=== PATIENT | female | born 1965 | race Hispanic/Latino ===

== ENCOUNTER 2016-07-05 14:07 | Emergency (ER) | payer SELFPAY ==
--- NOTE | 2016-07-05 14:53 | Emergency Department Report ---
Chief Complaint: Upper Respiratory Infection Stated Complaint: UPPER RESPIRATORY SINUS INFECTION Time Seen by Provider: 07/05/16 14:50 - HPI History of Present Illness: PT with URI symptoms since Mar. PT now with productive cough. hx of smoking - ROS Review of Systems: + nasal congestion + productive cough - sob - Exam Vital Signs: Vital Signs 07/05/16 14:40 Temperature 98.5 F Pulse Rate 68 Respiratory 18 Rate Blood Pressure 109/67 O2 Sat by Pulse 100 Oximetry Physical Exam: nasal congestion noted during exam no acute resp distress. lungs clear mita but diminished MSE screening note: Focused history and physical exam performed. Due to findings the following was ordered: ED Disposition for MSE Condition: Stable
--- NOTE | 2016-07-05 15:17 | XRay Report ---
CHEST 2 VIEWS INDICATION: Cough for 3 months. COMPARISON: None similar at this institution. FINDINGS: PA and lateral chest radiographs demonstrate normal cardiomediastinal silhouette. Clear, slightly hyperexpanded lungs. No pleural effusions or CHF. Intact bones. CONCLUSION: No acute chest process, as described. Thank you for the opportunity to participate in this patient's care.
--- NOTE | 2016-07-05 18:42 | Emergency Department Report ---
ED General Adult HPI - General Chief complaint: Upper Respiratory Infection Stated complaint: UPPER RESPIRATORY SINUS INFECTION Time Seen by Provider: 07/05/16 14:50 Source: patient Mode of arrival: Ambulatory Limitations: No Limitations - History of Present Illness Initial comments: PT c/o sinus pressure and drainage since Mar. PT states she was seen 06-15-16 and dx with infection but she could not tolerate the Bactrim she was placed on. PT states she has quit smoking but is concerned about her cough due to having black sputum. PT states she has had surgery on her adenoids. MD Complaint: c/c/c Onset/Timin -: Gradual, month(s) Location: head, chest Severity scale (0 -10): 10 Consistency: constant, other (worse at night) Associated Symptoms: cough, headaches, nausea/vomiting (after taking Bactrim, none now ). denies: shortness of breath - Related Data Previous Rx's Medication Instructions Recorded Last Taken Type Amoxicillin 500 mg PO BID #20 capsule 07/05/16 Unknown Rx Benzonatate [Tessalon Perles] 100 mg PO Q8HR PRN #12 capsule 07/05/16 Unknown Rx Doxycycline [Vibramycin CAP] 100 mg PO Q12HR #20 capsule 07/05/16 Unknown Rx methylPREDNISolone [Medrol] 4 mg PO DAILY #1 tab.ds.pk 07/05/16 Unknown Rx Allergies Allergy/AdvReac Type Severity Reaction Status Date / Time codeine AdvReac Nausea Verified 07/05/16 14:50 sulfamethoxazole AdvReac Nausea Verified 07/05/16 14:50 [From Bactrim] trimethoprim [From Bactrim] AdvReac Nausea Verified 07/05/16 14:50 ED Review of Systems ROS: Stated complaint: UPPER RESPIRATORY SINUS INFECTION Other details as noted in HPI Comment: All other systems reviewed and negative Constitutional: malaise ENT: as per HPI, throat pain (pt states from breathing with mouth open ), congestion, other (ringing in ears when taking Bactrim ). denies: hearing loss Respiratory: see HPI. denies: shortness of breath Cardiovascular: denies: chest pain Gastrointestinal: nausea, vomiting, diarrhea, other (pt reported GI upset when taking Bactrim ) ED Past Medical Hx - Past Medical History Hx Arthritis: Yes (spine) Hx Psychiatric Treatment: Yes (depression) Hx COPD: Yes Additional medical history: IBS - Surgical History Hx Appendectomy: Yes Additional Surgical History: hysterectomy,adnoids,,back surg,right foot ,left eye - Social History Smoking Status: Former Smoker Substance Use Type: None - Medications Home Medications: Home Medications Medication Instructions Recorded Confirmed Last Taken Type Amoxicillin 500 mg PO BID #20 capsule 07/05/16 Unknown Rx Benzonatate [Tessalon Perles] 100 mg PO Q8HR PRN #12 capsule 07/05/16 Unknown Rx Doxycycline [Vibramycin CAP] 100 mg PO Q12HR #20 capsule 07/05/16 Unknown Rx methylPREDNISolone [Medrol] 4 mg PO DAILY #1 tab.ds.pk 07/05/16 Unknown Rx ED Physical Exam - General Limitations: No Limitations General appearance: alert, in no apparent distress - Head Head exam: Present: atraumatic, normocephalic, other (+ sinus tendernss ) - Eye Eye exam: Present: normal appearance. Absent: conjunctival injection - ENT ENT exam: Present: normal orophraynx, mucous membranes moist, TM's normal bilaterally, other (nose with boggy turbinates mita and nasal drainage) - Neck Neck exam: Present: normal inspection, full ROM. Absent: lymphadenopathy - Respiratory Respiratory exam: Present: normal lung sounds bilaterally (diminshed mita ). Absent: wheezes, chest wall tenderness, accessory muscle use - Cardiovascular Cardiovascular Exam: Present: regular rate, normal rhythm, normal heart sounds - Rectal Rectal exam: Present: deferred - Extremities Exam Extremities exam: Present: normal inspection, full ROM - Back Exam Back exam: Present: normal inspection. Absent: tenderness, CVA tenderness (R), CVA tenderness (L) - Neurological Exam Neurological exam: Present: alert, oriented X3 - Psychiatric Psychiatric exam: Present: normal affect, normal mood - Skin Skin exam: Present: warm, dry, intact ED Course Vital Signs 07/05/16 14:40 Temperature 98.5 F Pulse Rate 68 Respiratory 18 Rate Blood Pressure 109/67 O2 Sat by Pulse 100 Oximetry - Reevaluation(s) Reevaluation #1: 07/05/16 18:44 PT aware of XR result and plan of care. PT has no questions at this time. With pt's duration of symptoms and hx of tobacco abuse, will treat as complicated bronchitis - Pulse Oximetry Interpretation Digit-Finger Initial Pulse Oximetry Readin Actions Taken: none ED Medical Decision Making - Radiology Data Radiology results: report reviewed CXR:Nap - Differential Diagnosis pna, bronchitis, sinusitis Critical Care Time: No Critical care attestation.: If time is entered above; I have spent that time in minutes in the direct care of this critically ill patient, excluding procedure time. ED Disposition Clinical Impression: Complicated bronchitis Sinusitis, acute Qualifiers: Sinusitis location: unspecified location Recurrence: not specified as recurrent Qualified Code(s): J01.90 - Acute sinusitis, unspecified Disposition: DISCHARGED TO HOME OR SELFCARE Is pt being admited?: No Does the pt Need Aspirin: No Condition: Stable Instructions: Chronic Bronchitis (ED), Acute Bronchitis (ED), Sinusitis (ED), Acute Bacterial Rhinosinusitis (ED) Prescriptions: Amoxicillin 500 mg PO BID #20 capsule Benzonatate [Tessalon Perles] 100 mg PO Q8HR PRN #12 capsule PRN Reason: Cough Doxycycline [Vibramycin CAP] 100 mg PO Q12HR #20 capsule methylPREDNISolone [Medrol] 4 mg PO DAILY #1 tab.ds.pk Referrals: PRIMARY CARE, [Primary Care Provider] - 3-5 Days Time of Disposition: 18:46
[2016-07-05 19:12] VITALS: BP 121/82
== END 2016-07-05 19:13 | disposition home or self-care (01) ==
LOC: ED 14:07
DX: J01.90 Acute sinusitis, unspecified (principal); J40 Bronchitis, not specified as acute or chronic; F32.9 Major depressive disorder, single episode, unspecified; J44.9 Chronic obstructive pulmonary disease, unspecified; Z87.891 Personal history of nicotine dependence
CPT/HCPCS: 71020; 99283

== ENCOUNTER 2020-11-27 10:19 | Outpatient (CLI) | payer MEDICARE ==
[2020-11-27 11:34] LABS: Alanine Aminotransferase 7 units/L (7-56); Albumin 4.6 g/dL (3.9-5); Blood Urea Nitrogen 8 mg/dL (7-17); Calcium 9.6 mg/dL (8.4-10.2); Hemolysis Index 4
[2020-11-27 11:38] LABS: BUN/Creatinine Ratio 11
[2020-11-29 12:12] LABS: ANA Screen, IFA Negative (Negative)
[2020-11-30 12:37] LABS: Vitamin D, 25-OH, D2 <4 ng/mL
== END 2020-11-27 10:20 | disposition home or self-care (01) ==
LOC: LAB 10:19
PROVIDERS: ATTEND Specialist
DX: M79.7 Fibromyalgia (principal); G61.9 Inflammatory polyneuropathy, unspecified
CPT/HCPCS: 36415; 80053; 82306; 82607; 83921; 84443; 85652; 86038; 86225; 86431; 86592